=== PATIENT | female | born 1980 ===

== ENCOUNTER 2016-11-20 17:32 | Emergency (ER) | payer SELFPAY ==
[2016-11-20 17:55] VITALS: BP 127/81
--- NOTE | 2016-11-20 18:20 | UC ---
Abdominal Pain Female HPI - HPI Summary HPI Summary: The patient comes in today for: 1. Lower abdominal/pelvic pain. Onset: "a couple of days." Palliative/provocative: Urinating makes it worse. Pressure with drinking. Quality: "Intense pressure." Region/radiation: Lower right and left quadrant with suprapubic area. Severity: 5/10 at rest--with urination: 7/10 Time: Constant Associated symptoms: Fever: None. Vomiting: None. Diarrhea: "a little bit." "Two or three little ones." LMP: October 30. Home treatment: Cranberry juice and water--but this did not help. Previous problems: None with abdominal organs or tract. * - History of Current Complaint Chief Complaint: UCAbdominalPain Stated Complaint: ABD PAIN,BLOOD IN URINE Time Seen by Provider: 11/20/16 18:08 Hx Obtained From: Patient Hx Last Menstrual Period: 10/30/16 ?: No Allergies/Adverse Reactions: Allergies Allergy/AdvReac Type Severity Reaction Status Date / Time Codeine Allergy Rash Verified 11/20/16 17:51 IV dye Allergy Anaphylatic Uncoded 11/20/16 17:52 Shock PMH/Surg Hx/FS Hx/Imm Hx Previously Healthy: Yes Endocrine History Of: Denies: Diabetes, Thyroid Disease, Hyperthyroidism, Hypothyroidism, Dyslipidemia Cardiovascular History Of: Denies: Cardiac Disorders, Hypertension, Pacemaker/ICD, Myocardial Infarction , Congestive Heart Failure, Atrial Fibrillation, Deep Vein Thrombosis, Bleeding Disorders Respiratory History Of: Denies: COPD, Asthma, Bronchitis, Pneumonia, Pulmonary Embolism GI/ History Of: Denies: Gastroesophageal Reflux, Ulcer, Gastrointestinal Bleed, Gall Bladder Disease, Kidney Stones, Diverticulitis, Renal Disease, Urosepsis Neurological History Of: Denies: TIA, CVA, Dementia, Seizures, Migraine Psychological History Of: Reports: Anxiety - No medications at this time, but in the past. Denies: Depression, Bipolar Disorder, Schizophrenia, Post Traumatic Stress Disorder Cancer History Of: Denies: Lung Cancer, Colorectal Cancer, Breast Cancer, Prostate Cancer, Cervical Cancer Other History Of: Negative For: HIV, Hepatitis B, Hepatitis C, Anticoagulant Therapy - Surgical History Surgical History: Yes Surgery Procedure, Year, and Place: R shoulder surgery - Family History Known Family History: Negative: Cardiac Disease, Hypertension - Social History Occupation: Employed Full-time Alcohol Use: None Substance Use Type: None Smoking Status (MU): Never Smoked Tobacco Review of Systems Constitutional: Negative Skin: Negative Eyes: Negative ENT: Negative Respiratory: Negative Cardiovascular: Negative Gastrointestinal: Abdominal Pain Genitourinary: Hematuria, Frequency All Other Systems Reviewed And Are Negative: Yes Physical Exam Triage Information Reviewed: Yes Appearance: Well-Appearing, Well-Nourished, Ill-Appearing, Pain Distress - She will grimace from time to time when taking the history. Vital Signs: Initial Vital Signs Temp 98.9 F 11/20/16 17:52 Pulse 84 11/20/16 17:52 Resp 16 11/20/16 17:52 BP 127/81 11/20/16 17:52 Pulse Ox 100 11/20/16 17:52 Eyes: Positive: Conjunctiva Clear. Negative: Discharge ENT: Positive: Hearing grossly normal. Negative: Pharyngeal erythema, Nasal congestion, Nasal drainage, TM bulging, TM dull, TM red, Tonsillar swelling, Tonsillar exudate Dental: Negative: Gross Decay/Caries @, Dental Fracture @ Neck: Positive: Supple, Nontender, No Lymphadenopathy. Negative: Nuchal Rigidity Respiratory: Positive: Chest non-tender, Lungs clear, No respiratory distress, No accessory muscle use. Negative: Crackles, Stridor Cardiovascular: Positive: RRR, No Murmur Abdomen Description: Positive: No Organomegaly, Soft, McBurney's Point Tenderness - This area was there the more mild pain was compared to the suprapupic area.. Negative: Nontender - She had diffuse tenderness to palpation of the RLQ and the LLQ with most of the pressure/discomfort in the supraputic area., Distended, Guarding, Peritoneal Signs Musculoskeletal: Positive: Strength Intact, ROM Intact, No Edema Neurological: Positive: Alert, Muscle Tone Normal Psychological: Positive: Age Appropriate Behavior, Consolable Skin: Negative: rashes, breakdown UC Physical Exam Vital Signs On Initial Exam: Initial Vitals Temp Pulse Resp BP Pulse Ox 98.9 F 84 16 127/81 100 11/20/16 17:52 11/20/16 17:52 11/20/16 17:52 11/20/16 17:52 11/20/16 17:52 - Genitalia Exam Female Genitourinary: Other - External: No lesions Speculum: No lesions on os, no discharge, no blood. Bimanual exam: She had no children, and the exam generally was diffusely tender. There were no masses and there was bladder wall tenderness, and some cervical motion tenderness. No adnexal massees, but diffuse adnexal tenderness bilaterally. Diagnostics - Laboratory Diagnostic Studies Completed/Ordered: Urine screen: Specific gravity: 1.015. WBC: 500. Nitrite: (-). Blood: (+3). Protein: 500. Glucose: (-) Abd Pain Female Course/Dx - Course Course Of Treatment: Patient was told of the urine and pelvic exam results. The patient was told that I did not know for sure what was causing her lower abdominal pain. She was told that there are many causes for abdominal pain-- some benign, and some life-threatening. And these life-threatening conditions can be present with minimal, atypical, or even no symptoms. Since we don't have the testing modalities that are commonly used to distinguish between the benign. and life-threatening causes and their timely results, my formal recommendation was for her to go. to the ER for further evaluation. She declined this and only wanted to be treated for a UTI. She said that she will go to the ER if she gets worse. - Differential Dx/Diagnosis Provider Diagnoses: ABdominal pain. UTI Discharge - Discharge Plan Condition: Stable Disposition: AGAINST MEDICAL ADVICE Patient Education Materials: Urinary Tract Infection in Women (ED) Forms: *Work Release Referrals: No Primary Care Phys,NOPCP [Primary Care Provider] - [facility] [place] [facility] REFERRAL [Outside] Additional Instructions: If you don't go to the ER as recommended, please see your primary care provider as soon as you can. If you don't have a primary care provider, you can come back to see us until you do.
[2016-11-20] MEDS ORDERED: Ibuprofen TAB* 600 MG PO ONE (19:14)
[2016-11-20] MEDS ORDERED: Phenazopyridine TAB* 100 MG PO ONE (19:14)
== END 2016-11-20 20:05 | disposition left against medical advice (07) ==
LOC: UCEAST 17:32
DX: R10.30 Lower abdominal pain, unspecified (principal); N39.0 Urinary tract infection, site not specified; B96.89 Other specified bacterial agents as the cause of diseases classified elsewhere
CPT/HCPCS: 81002; 87077; 87086; 87480; 87491; 87510; 87591; 87661; A9270-GY